=== PATIENT | female | born 1950 | race Two or more races ===

== ENCOUNTER 2018-09-02 10:48 | Outpatient (CLI) | payer OTHER ==
[~2018-09-02 10:48] MED LIST: B-125000 MCG/1 SL; CYTOMEL25 MCG PO; DICY20TA PO; IMODIUM A-D2 M1 PO; INTEGRA F CAPS1 EACH PO; INTEGRA PLUS C1 EACH PO; INTESTINEX1 CA1 PO; NEURIN PO; NEURONTIN300 MG PO; OSCAL D 5001 TAB PO; PERCOCET 5/3251 TAB PO; POLY119PG PO; PRE-PROTEIN236.5 ML PO; SURFAK240 MG NGT; SYNTHROID50 MCG PO; TRAM1TAB98 PO; TYLENOL325 MG PO; [UNRECOGNIZED DRUG - OTHER] PO
== END 2018-09-02 11:08 | disposition home or self-care (01) ==
LOC: LAB 10:48
DX: Z80.41 Family history of malignant neoplasm of ovary (principal); Z80.1 Family history of malignant neoplasm of trachea, bronchus and lung; C56.2 Malignant neoplasm of left ovary; C73 Malignant neoplasm of thyroid gland; N60.81 Other benign mammary dysplasias of right breast; D51.3 Other dietary vitamin B12 deficiency anemia; D50.8 Other iron deficiency anemias; D53.0 Protein deficiency anemia; J45.20 Mild intermittent asthma, uncomplicated; D63.0 Anemia in neoplastic disease

== ENCOUNTER 2018-09-02 12:01 | Outpatient (CLI) | payer OTHER | END 2018-09-02 12:06 | disposition home or self-care (01) | LOC: MAMO-SONO 12:01 | DX: Z12.31 Encounter for screening mammogram for malignant neoplasm of breast (principal); Z87.898 Personal history of other specified conditions; Z80.41 Family history of malignant neoplasm of ovary; Z80.1 Family history of malignant neoplasm of trachea, bronchus and lung; C56.2 Malignant neoplasm of left ovary; C73 Malignant neoplasm of thyroid gland; N60.81 Other benign mammary dysplasias of right breast; D51.3 Other dietary vitamin B12 deficiency anemia; D50.8 Other iron deficiency anemias; D53.0 Protein deficiency anemia; J45.20 Mild intermittent asthma, uncomplicated; D63.0 Anemia in neoplastic disease ==

== ENCOUNTER 2019-03-29 07:50 | Outpatient (CLI) | payer OTHER | END 2019-03-29 07:52 | disposition home or self-care (01) | LOC: SONOGRAMA 07:50 → MAMO-SONO 08:15 | DX: C73 Malignant neoplasm of thyroid gland (principal) ==

== ENCOUNTER 2020-07-10 13:19 | Outpatient (CLI) | payer OTHER | END 2020-07-10 13:34 | disposition home or self-care (01) | LOC: MAMO-SONO 13:19 | PROVIDERS: ATTEND Internal Medicine Hematology & Oncology | DX: N64.59 Other signs and symptoms in breast (principal); N64.89 Other specified disorders of breast; C73 Malignant neoplasm of thyroid gland; Z80.41 Family history of malignant neoplasm of ovary; Z80.1 Family history of malignant neoplasm of trachea, bronchus and lung; C56.2 Malignant neoplasm of left ovary; N60.81 Other benign mammary dysplasias of right breast; D51.3 Other dietary vitamin B12 deficiency anemia; D50.8 Other iron deficiency anemias; D53.0 Protein deficiency anemia; J45.20 Mild intermittent asthma, uncomplicated ==

== ENCOUNTER 2021-12-03 07:15 | Outpatient (CLI) | payer OTHER | END 2021-12-03 07:27 | disposition home or self-care (01) | LOC: MAMO-SONO 07:15 | PROVIDERS: ATTEND Internal Medicine Hematology & Oncology | DX: N60.81 Other benign mammary dysplasias of right breast (principal); Z80.41 Family history of malignant neoplasm of ovary; Z80.1 Family history of malignant neoplasm of trachea, bronchus and lung; C56.1 Malignant neoplasm of right ovary; C73 Malignant neoplasm of thyroid gland; D51.3 Other dietary vitamin B12 deficiency anemia; D50.8 Other iron deficiency anemias; D53.0 Protein deficiency anemia; J45.20 Mild intermittent asthma, uncomplicated; D63.0 Anemia in neoplastic disease; Z12.31 Encounter for screening mammogram for malignant neoplasm of breast ==